=== PATIENT | female | born 1960 | race Caucasian/White ===

== ENCOUNTER 2017-07-16 19:09 | Emergency (ER) | payer OTHER ==
[2017-07-16] MEDS: IPRATROPIUM (NEB) 0.5 MG/2.5 ML AMP HHN (20:42)
[2017-07-16] MEDS: ALBUTEROL 0.083% (NEB) 2.5 MG/3 ML AMP HHN (20:42)
[2017-07-16] MEDS: DEXAMETHASONE 10 MG/ML 1 ML INJ IM (20:44)
== END 2017-07-16 23:52 | disposition home or self-care (01) ==
LOC: FTE 19:09
DX: H33.22 Serous retinal detachment, left eye (principal); J06.9 Acute upper respiratory infection, unspecified; J45.901 Unspecified asthma with (acute) exacerbation; E11.9 Type 2 diabetes mellitus without complications
CPT/HCPCS: 71045; 76536; 94664; 96372; 99285-25

== ENCOUNTER 2017-08-30 17:28 | Emergency (ER) | payer OTHER ==
[2017-08-30 19:04] LABS: URINE BLOOD (Dip) POC Negative (NEGATIVE); URINE GLUCOSE (Dip) POC Negative (NEGATIVE); URINE KETONES (Dip) POC Negative (NEGATIVE); URINE LEUKOCYTE EST (Dip) POC 1+ (NEGATIVE); URINE NITRITE (Dip) POC Negative (NEGATIVE); URINE TOTAL PROTEIN POC Negative (NEGATIVE)
[2017-08-30 19:04] LABS: URINE PH (Dip) POC 5.5 (5.0-8.5)
== END 2017-08-30 19:39 | disposition home or self-care (01) ==
LOC: FTE 17:28
DX: N30.00 Acute cystitis without hematuria (principal); J45.909 Unspecified asthma, uncomplicated; E11.9 Type 2 diabetes mellitus without complications; N89.8 Other specified noninflammatory disorders of vagina
CPT/HCPCS: 81003; 81025; 99283

== ENCOUNTER 2017-10-21 14:14 | Emergency (ER) | payer OTHER ==
[2017-10-21] MEDS: ACETAMINOPHEN 325 MG TAB PO (17:32)
[2017-10-21] MEDS: ONDANSETRON (ODT) 4 MG TAB ODT (17:33)
== END 2017-10-21 18:15 | disposition home or self-care (01) ==
LOC: FTE 14:14
DX: H60.91 Unspecified otitis externa, right ear (principal); J45.909 Unspecified asthma, uncomplicated; E11.9 Type 2 diabetes mellitus without complications
CPT/HCPCS: 82962; 99283

== ENCOUNTER 2018-02-20 12:20 | Emergency (ER) | payer OTHER ==
[2018-02-20] MEDS: IPRATROPIUM (NEB) 0.5 MG/2.5 ML AMP NEB (13:56)
[2018-02-20] MEDS: ALBUTEROL 0.083% (NEB) 2.5 MG/3 ML AMP NEB (13:56)
[2018-02-20] MEDS: predniSONE 20 MG TAB PO (14:03)
== END 2018-02-20 14:56 | disposition home or self-care (01) ==
LOC: FTE 12:20
DX: J45.901 Unspecified asthma with (acute) exacerbation (principal); E11.9 Type 2 diabetes mellitus without complications; R05 Cough
CPT/HCPCS: 94664; 99283-25

== ENCOUNTER 2018-08-21 11:03 | Emergency (ER) | payer MEDICAID, OTHER | END 2018-08-21 12:18 | disposition home or self-care (01) | LOC: FTE 11:03 | DX: N76.0 Acute vaginitis (principal); H10.13 Acute atopic conjunctivitis, bilateral; J45.909 Unspecified asthma, uncomplicated; E11.9 Type 2 diabetes mellitus without complications | CPT/HCPCS: 99283; Z7502 ==

== ENCOUNTER 2018-09-27 22:29 | Emergency (ER) | payer OTHER, MEDICAID ==
[2018-09-27] MEDS: IPRATROPIUM (NEB) 0.5 MG/2.5 ML AMP NEB (23:30)
[2018-09-27] MEDS: ALBUTEROL 0.083% (NEB) 2.5 MG/3 ML AMP NEB (23:30)
[2018-09-27] MEDS: DEXAMETHASONE 10 MG/ML 1 ML INJ IV (23:36)
[2018-09-27] MEDS: SOD CHLORIDE 0.9% 500 ML IV (23:36)
[2018-09-27 23:51] LABS: ADD MAN DIFF? NO; BASOPHILS % 0.4 % (0.0-2.0); EOSINOPHILS # 0.5 10^3/ul (0.0-0.5); EOSINOPHILS % 7.7 % (0.0-7.0); HEMATOCRIT 38.3 % (37.0-47.0); HEMOGLOBIN 13.1 g/dl (12.0-16.0); LYMPHOCYTES # 3.1 10^3/ul (0.8-2.9); LYMPHOCYTES % 43.8 % (15.0-51.0); MEAN CORPUSCULAR HEMOGLOBIN 30.7 pg (29.0-33.0); MEAN CORPUSCULAR HGB CONC 34.2 g/dl (32.0-37.0); MEAN CORPUSCULAR VOLUME 89.7 fl (82.0-101.0); MEAN PLATELET VOLUME 11.4 fl (7.4-10.4); MONOCYTE # 0.4 10^3/ul (0.3-0.9); MONOCYTES % 6.3 % (0.0-11.0); NEUTROPHIL # 2.9 10^3/ul (1.6-7.5); NEUTROPHILS % 41.7 % (39.0-77.0); PLATELET COUNT 169 10^3/UL (140-415); RED BLOOD COUNT 4.27 10^6/ul (4.20-5.40); RED CELL DISTRIBUTION WIDTH 12.1 % (11.5-14.5)
[2018-09-28 00:11] LABS: ANION GAP 8 (5-13); BLOOD UREA NITROGEN 11 mg/dl (7-20); CALCIUM 9.6 mg/dl (8.4-10.2); CARBON DIOXIDE 29 mmol/L (21-31); CHLORIDE 106 mmol/L (97-110); CREATININE 0.52 mg/dl (0.44-1.00); Estimated GFR > 60 mL/min (>60); GLUCOSE 107 mg/dl (70-220); POTASSIUM 3.9 mmol/L (3.5-5.1); SODIUM 143 mmol/L (135-144)
== END 2018-09-28 01:58 | disposition home or self-care (01) ==
LOC: FTE 09-28 01:58
DX: J45.901 Unspecified asthma with (acute) exacerbation (principal); E11.9 Type 2 diabetes mellitus without complications
CPT/HCPCS: 71045; 80048; 85025; 94664; 96374; 99284-25